=== PATIENT | female | born 1990 | race Asian ===

== ENCOUNTER 2018-09-19 21:17 | Emergency (ER) | payer OTHER ==
[~2018-09-19] VITALS: Ht 160 cm; Wt 70.3 kg
[2018-09-19 21:32] VITALS: BP_SYST 93
[2018-09-19] MEDS ORDERED: SULFAMETHOXAZOLE/TRIMETHOPR DS 1 TABLET PO ONE (21:45)
[2018-09-19] MEDS ORDERED: CEPHALEXIN 500 MG CAPSULE PO ONE (21:45)
[2018-09-19] MEDS ORDERED: KETOROLAC TROMETHAMINE 30 MG VIAL IM ONE (22:00)
[2018-09-19] MEDS ORDERED: KETOROLAC TROMETHAMINE 30 MG VIAL ONE (22:00)
[2018-09-19 22:02] VITALS: BP_SYST 102
== END 2018-09-19 22:02 | disposition home or self-care (01) ==
LOC: SED 21:17
DX: N75.1 Abscess of Bartholin's gland (principal); K64.4 Residual hemorrhoidal skin tags
CPT/HCPCS: 99283; J1885